=== PATIENT | male | born 1950 | race Caucasian/White ===

== ENCOUNTER → 2017-09-05 | Outpatient (CLI) | payer MEDICARE ==
[~2017-09-05] MED LIST: ADULT LOW DOSE81 MG PO; ALBUTEROL2.5 MG/NEB INH; AMLO5TAB PO; ANORO ELLIPTA1 POW IH; ATORVASTATIN CA20 M1 PO; CARVEDILOL3.125 M1 PO; CLOPIDOGREL75 M2 PO; EFFIENT10 M2 PO; FLUOXETINE 10MG10 MG PO; HYZAAR 50-12.51 EACH PO; HYZAAR1 TA1 PO; LISINOPRIL 10MG10 MG PO; LISINOPRIL/HCTZ1 TA3 FT; LODINE200 MG PO; MIRALAX(PO17 GM/1 PA PO; NEURONTIN800 MG PO; NORVASC 5MG. TAB5 MG PO; OMNICEF 300 MG300 MG PO; PREDNISONE 20MG20 MG PO; PROZAC 20MG CAP20 MG PO; THEO-24200 MG PO; TYLENOL W/CODEI1 TA2 PO; VITAMIN D50000 I1 PO; ZITHROMAX Z-PA250 M2 PO
[2017-09-05 16:23] LABS: HEMOGLOBIN 13.9 g/dL (14.1-18.0); LYMPH # 3.3 K/mm3 (0.7-4.5); LYMPH % 33.6 % (10-50)
[2017-09-05 16:57] LABS: BUN 25 mg/dL (7-18)
[2017-09-05 16:58] LABS: GFR (ESTIMATED) 38 ML/MIN (>60)
== END ==
LOC: LAB 15:23
PROVIDERS: Emergency Medicine
DX: M19.90 Unspecified osteoarthritis, unspecified site (principal); Z79.899 Other long term (current) drug therapy